=== PATIENT | female | born 1970 | race Caucasian/White ===

== ENCOUNTER 2021-09-13 23:45 | Emergency (ER) | payer MEDICAID, OTHER ==
[~2021-09-13] VITALS: Ht 154.9 cm; Wt 74.8 kg
[2021-09-14 00:42] VITALS: BP 156/80
== END 2021-09-14 05:45 | disposition home or self-care (01) ==
LOC: ER 23:45
DX: M75.31 Calcific tendinitis of right shoulder (principal); M77.8 Other enthesopathies, not elsewhere classified; I12.9 Hypertensive chronic kidney disease with stage 1 through stage 4 chronic kidney disease, or unspecified chronic kidney disease; E09.22 Drug or chemical induced diabetes mellitus with diabetic chronic kidney disease; N18.9 Chronic kidney disease, unspecified; Z88.8 Allergy status to other drugs, medicaments and biological substances
CPT/HCPCS: 70450; 72125; 73030